=== PATIENT | male | born 1985 | race American Indian/Alaskan Native ===

== ENCOUNTER 2018-09-30 13:39 | Emergency (ER) | payer SELFPAY ==
[2018-09-30 13:52] VITALS: TEMP 98.5
--- NOTE | 2018-09-30 14:48 | RAD ---
HISTORY: bloody sputum COMPARISON: No prior. TECHNIQUE: Chest PA and lateral FINDINGS: Examination limited by habitus and hypoinflation. LUNGS: No focal consolidation. Please note that chest x-ray has limited sensitivity for the detection of pulmonary masses. PLEURA: No significant pleural effusion identified. No definite pneumothorax . CARDIOVASCULAR: Heart size appears within normal limits. No atherosclerotic calcification present. OSSEOUS STRUCTURES: No acute osseous abnormality identified. VISUALIZED UPPER ABDOMEN: Unremarkable. OTHER FINDINGS: None. IMPRESSION: No focal consolidation.
--- NOTE | 2018-09-30 14:59 | C.PDOC ---
History Of Present Illness 33 year old male presents to the emergency department with complaints of sharp pain to the bilateral lower ribs due to a cough for the last two weeks. Patient states that he has had URI symptoms for the last two weeks, and that he took Motrin for the rib pain which helped somewhat. He denies fever, chills, runny nose, headache, abdominal pain, nausea, and vomiting. Time Seen by Provider: 09/30/18 13:55 Chief Complaint (Nursing): Rib Injury History Per: Patient History/Exam Limitations: no limitations Onset/Duration Of Symptoms: Other (two weeks) Location Of Pain/Discomfort: Other (bilateral lower ribs) Quality Of Discomfort: "Pain" Associated Symptoms: denies: Fever, Chills, Nausea, Vomiting, Diarrhea Past Medical History Reviewed: Historical Data, Nursing Documentation, Vital Signs Vital Signs: Last Vital Signs Temp 98.5 F 09/30/18 13:48 Pulse 105 H 09/30/18 13:48 Resp 18 09/30/18 13:48 BP 135/90 09/30/18 13:48 Pulse Ox 95 09/30/18 13:48 - Medical History PMH: No Chronic Diseases Surgical History: No Surg Hx Family History: States: No Known Family Hx - Social History Hx Alcohol Use: Yes Hx Substance Use: No - Immunization History Hx Tetanus Toxoid Vaccination: Yes Hx Influenza Vaccination: No Hx Pneumococcal Vaccination: No Review Of Systems Except As Marked, All Systems Reviewed And Found Negative. Constitutional: Negative for: Fever, Chills Cardiovascular: Positive for: Chest Pain (lower ribs) Gastrointestinal: Negative for: Nausea, Vomiting, Abdominal Pain, Diarrhea Neurological: Negative for: Headache Physical Exam - Physical Exam Appears: Well, Non-toxic, No Acute Distress Skin: Normal Color, Warm, Dry Head: Atraumatic, Normacephalic Eye(s): bilateral: Normal Inspection, PERRL, EOMI Oral Mucosa: Moist Neck: Normal, Supple Chest: Symmetrical, Tenderness (tenderness to the lower ribs bilaterally, large healing scar noted to the right forearm with diminished fuctionality ) Cardiovascular: Rhythm Regular, No Murmur Extremity: Other (large healing scar to the right forearm with diminished functionality of the right hand) Neurological/Psych: Oriented x3, Normal Speech, Normal Cognition ED Course And Treatment O2 Sat by Pulse Oximetry: 95 (RA) Pulse Ox Interpretation: Normal - Other Rad CXR X-Ray: Viewed By Me, Read By Radiologist Interpretation: IMPRESSION: No focal consolidation. Medical Decision Making Medical Decision Making: Plan: CXR Disposition Counseled Patient/Family Regarding: Studies Performed, Diagnosis, Need For Followup, Rx Given - Disposition Disposition: HOME/ ROUTINE Disposition Time: 14:58 Condition: STABLE Instructions: Costochondritis (DC), Chlorpheniramine, Pseudoephedrine, and Dextromethorphan Forms: [employer] ([place]), General Discharge Instructions - POA Present On Arrival: None - Clinical Impression Clinical Impression: Rib pain, Cough - Scribe Statement The provider has reviewed the documentation as recorded by the Scribe (Sammy [email or web address]) Provider Attestation: All medical record entries made by the Scribe were at my direction and personally dictated by me. I have reviewed the chart and agree that the record accurately reflects my personal performance of the history, physical exam, medical decision making, and the department course for this patient. I have also personally directed, reviewed, and agree with the discharge instructions and disposition.
[2018-09-30 15:13] VITALS: BP 128/83; PULSE 91; RESP 19
[2018-09-30 15:54] VITALS: O2SAT 95
== END 2018-09-30 15:13 | disposition home or self-care (01) ==
LOC: C.ER 13:39
DX: R07.81 Pleurodynia (principal); R05 Cough